=== PATIENT | male | born 1955 | race Caucasian/White ===

== ENCOUNTER 2017-03-18 07:51 | Day surgery (SDC) | payer MEDICAID ==
[2017-03-18] MEDS ORDERED: fentaNYL 100 MCG/2 ML SDV ONE (07:56)
[2017-03-18] MEDS ORDERED: Midazolam 1 MG/ML 2 ML SDV ONE (07:56)
[2017-03-18] MEDS ORDERED: Propofol 200 MG/20 ML SDV ONE (07:56)
[2017-03-18] MEDS ORDERED: Lactated Ringers 1,000 ML IV SCH (08:00)
--- NOTE | 2017-03-18 11:09 | OR ---
DATE OF PROCEDURE: 03/18/2017 PREOPERATIVE DIAGNOSIS: History of colon polyps. POSTOPERATIVE DIAGNOSES: 1. Pedunculated polyp, 25 cm from the anal verge. 2. History of colon polyps. PROCEDURES: Colonoscopy to the cecum with initial biopsy and then snare cautery polypectomy of a polyp 25 cm from the anal verge. SURGEON: Kannan Hall MD. ANESTHESIA: IV anesthesia with monitored anesthesia care. INDICATION: This 62-year-old white male is referred for a colonoscopy because of a history of colon polyps. He says his last colonoscopic exam was done three years ago. I counseled him for the procedure including risks and alternatives, and he gave his informed consent to proceed. DESCRIPTION OF PROCEDURE: The patient was placed in the left lateral decubitus position. IV anesthesia was administered by the Anesthesia Service. Time-out was held. A rectal exam was performed, which was unremarkable. The flexible video Olympus colonoscope was introduced through his anus, up his rectum, and out his colon all the way to the cecum. En route, at about 25 cm from the anal verge, we encountered a pedunculated polyp. We biopsied this initially. It was way too large to remove using this technique. A snare was passed about its base. It was elevated up away from the bowel wall and amputated as electrocautery was applied. The polyp was aspirated up through the scope and captured in a polyp trap. Once the cecum was reached, the scope was slowly withdrawn, examining the mucosa throughout. No additional mucosal abnormalities were noted. The scope was retroflexed in the rectum with the distal rectum appearing unremarkable. The scope was straightened and removed. He tolerated the procedure well. Kannan Hall MD /[id number] MTDD
== END 2017-03-18 10:55 | disposition home or self-care (01) ==
LOC: JP.SDS 07:51
PROVIDERS: ATTEND Surgery
DX: Z12.11 Encounter for screening for malignant neoplasm of colon (principal); D12.6 Benign neoplasm of colon, unspecified; Z86.010 Personal history of colon polyps
CPT/HCPCS: 45380; 45385; J2250; J2704; J3010; J7120; 88305

== ENCOUNTER 2020-03-26 07:32 | Day surgery (SDC) | payer MEDICAID ==
[2020-03-26] MEDS ORDERED: fentaNYL 100 MCG/2 ML SDV ONE (07:41)
[2020-03-26] MEDS ORDERED: Propofol 200 MG/20 ML SDV ONE ×2 (07:41→09:11)
[2020-03-26] MEDS ORDERED: Midazolam 1 MG/ML 2 ML SDV ONE (07:41)
[2020-03-26] MEDS ORDERED: Sodium Chloride 0.9% 1,000 ML IV SCH (08:00)
--- NOTE | 2020-03-26 11:12 | OR ---
DATE OF PROCEDURE: 03/26/2020 SURGEON: Otto Zheng MD PROCEDURE: Colonoscopy. FINDINGS: 1. Ascending colon polyp, approximately 5 mm, completely removed using cold biopsy forceps. 2. Sigmoid colon polyp, approximately 8 mm, completely removed using hot snare wire device. COMPLICATIONS: None. 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 ANESTHESIA: MAC. PREOPERATIVE DIAGNOSIS: Screening colonoscopy. POSTOPERATIVE DIAGNOSIS: Screening colonoscopy. RISKS: Risks, benefits, alternatives, and limitations including, but not limited to, infection, bleeding, and perforation were explained to the patient who wished to proceed. PROCEDURE IN DETAIL: The patient was placed in left lateral decubitus position. Digital rectal exam was performed without abnormality. Scope was then advanced atraumatically to ileocecal valve. A photo was taken. The scope was brought back to the ascending, transverse, descending colon, and retroflexed. No evidence of old or new blood. No masses. The aforementioned polyps were identified and completely removed. No abnormal bleeding after removal. No colitis. No abnormalities when retroflexed. Greater than 8 minutes was spent removing the scope. The patient tolerated the procedure well. Otto Zheng MD /[id number]
== END 2020-03-26 10:38 | disposition home or self-care (01) ==
LOC: JP.SDS 07:32
PROVIDERS: ATTEND Surgery
DX: Z12.11 Encounter for screening for malignant neoplasm of colon (principal); D12.5 Benign neoplasm of sigmoid colon; D12.2 Benign neoplasm of ascending colon; K21.9 Gastro-esophageal reflux disease without esophagitis
CPT/HCPCS: 45380; 45385; J2250; J2704; J3010; J7030

== ENCOUNTER 2022-06-05 07:25 | Day surgery (SDC) | payer MEDICARE, MEDICAID ==
[2022-06-05] MEDS ORDERED: fentaNYL 100 MCG/2 ML SDV ONE (07:31)
[2022-06-05] MEDS ORDERED: Midazolam 1 MG/ML 2 ML SDV ONE (07:31)
[2022-06-05] MEDS ORDERED: Propofol 200 MG/20 ML SDV ONE (07:31)
[2022-06-05] MEDS ORDERED: Sodium Chloride 0.9% 1,000 ML IV SCH (08:30)
== END 2022-06-05 11:04 | disposition home or self-care (01) ==
LOC: JP.SDS 07:25
PROVIDERS: ATTEND Surgery
DX: K20.90 Esophagitis, unspecified without bleeding (principal); K21.9 Gastro-esophageal reflux disease without esophagitis
CPT/HCPCS: 43239; 45378; J2250; J2704; J3010; J7030; 88305